=== PATIENT | female | born 1985 | race Caucasian/White ===

== ENCOUNTER 2023-10-29 15:07 | Outpatient (CLI) | payer OTHER, SELFPAY ==
[2023-10-29 15:58] LABS: Hematocrit 31.7 % (37.0-47.0); Hemoglobin 9.2 g/dL (12.0-15.0)
== END 2023-10-29 15:08 | disposition home or self-care (01) ==
LOC: ANHLAB 15:16
PROVIDERS: Visit Provider Obstetrics & Gynecology
DX: N84.0 Polyp of corpus uteri (principal)
CPT/HCPCS: 36415; 85014; 85018

== ENCOUNTER 2023-11-06 00:36 | Day surgery (SDC) | payer OTHER, SELFPAY ==
[2023-10-28 17:33] VITALS: BMI 42.9
--- NOTE | 2023-10-28 17:48 | SUR.PREOP ---
Addendum entered by Sruthi Olsen RN 10/29/23 13:25: ERROR: Patient instructed to report to Outpatient Waiting Room at 0600 on 11/06/23. Planned procedure time 0730. Original Note: Report to the Outpatient Waiting Room, entrance under the green pavilion located off [facility], at time _10am_ on date _11/06/23__. Planned Procedure Time: _12pm__. Time changes happen often and if your time is changed the preop area will call you the afternoon before. - You and your visitor will be asked to self-screen and do not enter if you have any COVID symptoms. - A mask is optional within the hospital at this time. Patients may have clear liquids (water, carbonated beverages, clear teas, apple juice) until 3 hours prior to surgery with a maximum of 20 ounces. - No food from midnight until time of surgery - Infants may have breast milk until 4 hours before surgery, formula 6 hours prior to surgery. - Children will be allowed to drink immediately following surgery. If applicable, please bring a bottle or sippy cup to assist with drinking. Juice, water, soda, and popsicles are readily available. For infants on formula, please bring formula the day of surgery. Pacifiers are allowed. Take the following medications with a SIP of water the morning of surgery: __NA__ DO NOT STOP ANY OF YOUR OTHER PRESCRIPTION MEDICATIONS PRIOR TO SURGERY ?EXCEPT THE FOLLOWING Medications to discontinue per physician _NA__ Date to take last dose___NA____ Please no make-up, nail persian, hairspray, perfume, deodorant, or body powder the day of surgery. No jewelry (including any body piercings) or valuables the day of surgery, leave them at home. Please take a shower or bath the night before, or the morning of, surgery with an antibacterial soap. Wear comfortable, loose fitting clothing. Children are encouraged to wear pajamas. - Jewelry must be removed prior to entering the operating room. Rings and piercings that are not removed may be cut off. - The hospital will not accept responsibility for valuables. - Please leave all valuables, including medications, at home the day of surgery. If you are going home after surgery, a licensed rickshaw driver must drive you home. - NO public transportation without another adult if you receive anesthesia. - We recommend that an adult stay with you for 24 hours following discharge. - We also recommend that you do not drive, make important decision, drink alcoholic beverages, or take any drugs that were not prescribed by your health care provider for at least 24 hours after your discharge time. For Pediatric surgeries, we recommend two adults accompany the child home. Follow any additional instructions given to you from your surgeon. If you or anyone in your household have experienced Covid symptoms in the past week, please notify your surgeon or the nurse liaison at the phone number below for possible testing. Telephone instructions given to __MIN___and asked if any additional questions and then verbalized understanding. Patient advised to call surgeon office or pre surgery nurse liaison [phone] if any additional questions.
--- NOTE | 2023-11-05 06:36 | PM.IMHP ---
H&P: HPI History of Present Illness Date/Time: 11/05/23 06:36 Chief Complaint: excessive heavy bleeding Narrative: 38-year-old female with thickened endometrium and heavy bleeding a polyp was suspected. She will undergo hysteroscopy/ dilatation curettage/ polypectomy and Pao ablation. She understands that the Pao is not a form of control. Risks and benefits of the procedure reviewed including the exclusive of , aspiration pneumonia bleeding, transfusion, perforation injury to bowel, bladder, ureters, or other internal organs with need for open laparotomy. She has received the ACOG handouts entitled hysteroscopy as well as dilatation curettage. She had all questions answered and asked to proceed PMFSH Social History Social History Smoking status: Never smoker Second hand tobacco smoke exposure: Yes Alcohol use details: socially- once a month Substance use: never Living arrangements: with family Additional living arrangements comments: with fiance Spiritual care concerns: No Meds Home Medications and Allergies Home Medications Medication Instructions Recorded Confirmed Type albuterol sulfate 90 mcg/actuation inh inhalation PRN PRN Shortness 10/28/23 History aerosol inhaler Of Breath Or Wheezing zolmitriptan 2.5 mg tablet 2.5 mg PO PRN migraines 10/28/23 10/28/23 History Allergies Allergy/AdvReac Type Severity Reaction Status Date / Time codeine Allergy Hives Verified 10/28/23 17:31 Exam Const: General: cooperative, healthy appearing and comfortable Nutritional Appearance: overweight Orientation/consciousness: oriented to person, oriented to place and oriented to time HENMT: Head: normal to inspection Resp: Effort & Inspection: normal respiratory effort Cardio: Rate: regular rate Rhythm: regular rhythm Heart sounds: S1 normal heart sound present and S2 normal heart sound present GI: Inspection: normal to inspection : External Female Exam: normal external appearance Speculum Exam - Vagina: normal appearance of the vagina Speculum Exam - Cervix: normal appearance of the cervix Bimanual exam- vagina & uterus: enlarged Bimanual Exam- Adnexa, other: normal adnexae Assessment and Plan Assessment and plan (1) Excessive bleeding: Code(s): R58 - Hemorrhage, not elsewhere classified Status: Acute Plan hysteroscopy/ polypectomy/ dilatation curettage/ ablation
--- NOTE | 2023-11-05 12:12 | WPDANESEPPF ---
Anes - Initial Pre Proc Eval Procedure: Operation Date: 11/06/23 07:30 Proposed Procedures p Hysteroscopy Dilation and Curettage, Polypectomy, Pao Endometrial Ablation - Rashid Lauren MD Date/Time: 11/05/23 12:12 Surgeon: Rashid Lauren MD Pre Op Diagnosis: Excessive Heavy Bleed, Uterine Polyps Patient Data Age: 38 Gender: F Height: 1.63 m Weight: 113.4 kg Allergies Allergy/AdvReac Type Severity Reaction Status Date / Time codeine Allergy Hives Verified 11/06/23 06:22 Home Medications Medication Instructions Recorded Confirmed Type albuterol sulfate 90 mcg/actuation 2 inh inhalation PRN PRN Shortness 10/28/23 11/06/23 History aerosol inhaler Of Breath Or Wheezing zolmitriptan 2.5 mg tablet 2.5 mg PO PRN migraines 10/28/23 11/06/23 History Patient hx anesthesia problems: none Family hx anesthesia problems: none Results Review: All pre-operative results and documents have been reviewed as part of the pre-operative evaluation. [facility] Past Medical History Medical History (Updated 11/05/23 @ 12:12 by Usama Su DO) Asthma DVT (deep venous thrombosis) Hypertension Pulmonary embolism Scoliosis Social History Social History Smoking status: Never smoker Second hand tobacco smoke exposure: Yes Alcohol use details: socially- once a month Substance use: never Living arrangements: with family Additional living arrangements comments: with [facility] Spiritual care concerns: No Anes - Eval Final PreProcedure Day of Procedure 11/05/23 12:12 Patient weight: morbidly obese Heart: regular rate and rhythm Lungs: clear to auscultation Airway: Mallampati scale class II Neurological: alert and oriented Last oral intake: >/= 8 hours ASA classification: III Emergent: no Anesthetic plan: proceed Anesthesia type and monitoring: general GIVS and standard monitoring Results Review: All pre-operative results and documents have been reviewed as part of the pre-operative evaluation. Informed Consent: The patient's anesthetic plan and its attendant risks and benefits were discussed with the patient/family/POA. Questions were solicited and answers provided to the satisfaction of the patient/family/POA.
[2023-11-06 06:05] VITALS: BP 126/85; PULSE 86; RESP 18; TEMP 36.4; O2SAT 99
[2023-11-06] MEDS: LACTATED RINGERS 1,000 ML 30 ML IV CONT (06:10)
[2023-11-06] MEDS: ACETAMINOPHEN 500 MG TABLET 1000 MG PO (06:15)
--- NOTE | 2023-11-06 06:30 | WPDHPUPDATE1 ---
History and Physical Update Update Date/Time: 11/06/23 06:30 History and Physical has been reviewed, including an updated exam of the patient. There are NO changes in the patient's condition. Risks, benefits, and alternatives have been discussed and questions answered. Patient agrees to proceed with procedure.
[2023-11-06 06:32] LABS: BEDSIDEPREGUCG Negative
[2023-11-06] MEDS: LIDOCAINE HCL 1% LOCAL INJ 10 ML VIAL INFILTRATE (07:34)
[2023-11-06 08:00] VITALS: BP 115/74; PULSE 77; RESP 16; O2SAT 96
--- NOTE | 2023-11-06 08:06 | W.PM.PROC2 ---
Procedure Note - Detailed Date of Procedure 11/06/23 Pre-op Diagnosis Excessive Heavy Bleed, Uterine Polyps Post-op Diagnosis Other (Excessive heavy bleeding) Procedure Performed hysteroscopy/ dilatation curettage/ Pao ablation Surgeon Rashid Lauren MD Anesthesia MAC and Local Indications since 38-year-old female with excessive heavy bleeding Findings uterus sounded to 7cm. Thick endometrial tissue was seen Description of Procedure patient was prepped draped in normal sterile fashion placed in the dorsal lithotomy position. Excellent IV sedation weighted specifically supposed for anterior lip of cervix grasped with single-tooth tenaculum. 2.5cc of % xylocaine anesthesia was placed at 2, 4, 8, 10:00 a.m. of the surgeon. Uterus sounded to 7. Serial dilatation with fragmented dilators performed followed by passage of a Monique visualizing hysteroscope. Each fallopian tube os could be seen. The endometrium was irregular and thick however no polyp was seen. Uterus was scraped over the entire 360?. When a good grating sound was heard the instrument was withdrawn. The Pao instrument was placed at the appropriate depth. Burned for 120seconds. And then removed. The hysteroscope was reinserted and a good burn was seen. The instruments withdrawn the patient was awakened. She went to recovery in satisfactory all sponge, needle, instrument counts were correct. Were immediate complications Estimated Blood Loss 5 Drains No Packing No Pathology Yes Complications No immediate complications Condition Stable Disposition PACU
[2023-11-06 08:30] VITALS: BP 115/74; PULSE 77; RESP 16
[2023-11-06 08:53] VITALS: BP 134/80; PULSE 72; RESP 16
== END 2023-11-06 09:05 | disposition home or self-care (01) ==
PROVIDERS: PCP Family Medicine; Visit Provider Obstetrics & Gynecology
PROC: 0U5B8ZZ Destruction of Endometrium, Via Natural or Artificial Opening Endoscopic (ICD-10-PCS; CPT 58563; principal; 2023-11-06 07:30)
DX: N92.1 Excessive and frequent menstruation with irregular cycle (principal); N84.0 Polyp of corpus uteri; J45.909 Unspecified asthma, uncomplicated; I10 Essential (primary) hypertension; Z86.718 Personal history of other venous thrombosis and embolism; Z86.711 Personal history of pulmonary embolism; Z79.51 Long term (current) use of inhaled steroids; E66.01 Morbid (severe) obesity due to excess calories; Z68.41 Body mass index [BMI] 40.0-44.9, adult
CPT/HCPCS: 58563; 88305; A9270; J1100; J2250; J2405; J2704; J3010; J7120